=== PATIENT | male | born 1935 | race African-American/Black ===

== ENCOUNTER 2017-09-26 09:22 | Inpatient (IN) ==
[2017-09-26] MEDS: NOREPINEPHRINE 8 MG in SODIUM CHLORIDE 0.9% 242 ML IV SCH ×2 (13:14→21:18)
[2017-09-26] MEDS ORDERED: ONDANSETRON 4 MG/2 ML VIAL IV PRN (13:35)
[2017-09-26] MEDS ORDERED: SODIUM CHLORIDE 0.9% 1,000 ML IV ONE (13:35)
[2017-09-26] MEDS ORDERED: GLUCAGON 1 MG VIAL IM PRN ×2 (13:35→15:24)
[2017-09-26] MEDS ORDERED: PANTOPRAZOLE 40 MG TABLET PO SCH (14:00)
[2017-09-26] MEDS ORDERED: SODIUM CHLORIDE 0.9% 1,000 ML IV SCH (14:00)
[2017-09-26 14:02] LABS: ABG Base Excess -8.1 MMOL/L (-2.5-2.5); ABG HCO3 12.6 MMOL/L (20-26); ABG Oxygen Saturation 98.2 % (95-100); ABG PH 7.492 (7.35-7.45); ABG PO2 123.3 MM HG (80-95); ABG TCO2 13.2 MMOL/L (23-27)
[2017-09-26 14:04] LABS: ABG PCO2 16.9 MM HG (35-48)
[2017-09-26 14:39] LABS: Basophils # 0.1 10*3/uL (0.0-0.2); Basophils % 0.3 % (0.0-0.8); Eosinophils % 0.1 % (0.00-10.9); Hematocrit 40.6 VOL% (42.0-52.0); Hemoglobin 12.8 GM/DL (14.0-18.0); Immature Granulocytes % 8.2 %; Immature Granulocytes Absolute 3.49 #; Lymphocytes # 1.1 10*3/uL (1.4-4.0); Lymphocytes % 2.5 % (21.2-54.2); Mean Corpuscular HGB Conc 31.5 GM/DL (32-36); Mean Corpuscular Hemoglobin 26 PG (27-34); Mean Corpuscular Volume 83.2 FL (87-102); Monocytes # 6.3 10*3/uL (0.11-0.8); Monocytes % 14.8 % (1.7-12.7); NRBC # 0.02 10*3/uL; Neutrophils # 31.7 10*3/uL (1.4-7.4); Neutrophils % 74.1 % (38.7-73.9); Platelet Count 197 T/CUMM (130-400); Red Blood Count 4.88 MC/CUMM (3.8-5.5); Red Cell Distribution Width 26.8 % (9.3-17.3)
[2017-09-26 14:40] LABS: Mean Platelet Volume 10.3 FL (9.6-12.0)
[2017-09-26 14:41] LABS: White Blood Count 42.7 T/CUMM (4-12)
[2017-09-26 14:53] LABS: Lactic Acid 8.5 MMOL/L (0.4-2.0)
[2017-09-26 14:53] LABS: Bilirubin,Total 0.7 MG/DL (0.2-1.0); Calcium 8.5 MG/DL (8.5-10.1); Osmolality,Calculated 321.2 MOS/KG (273-304); Potassium 3.9 MMOL/L (3.5-5.1); Total Protein 5.9 G/DL (6.4-8.3)
[2017-09-26 15:01] LABS: Magnesium 2.3 MG/DL (1.8-2.4); Thyroid Stimulating Hormone 1.34 uIU/ml (0.358-3.74)
[2017-09-26 15:03] LABS: Apearance,Urine CLOUDY (Clear); Bacteria,Urine Occasional /HPF (Few); Bilirubin,Urine Negative (Negative); Blood, Urine Large mg/dL (Negative); Glucose,Urine (UA) Negative (Negative); Hyaline Casts,Urine 7 /LPF (0-3); Ketones,Urine Negative (Negative); Nitrite,Urine Negative (Negative); Protein,Urine 100 MG/DL; RBC,Urine 148 /HPF (0-4); Urine Color Amber (Yellow); Urine Specific Gravity 1.017 (1.001-1.035); Urine Urobilinogen < 2.0 EU/DL (0.2-1.0); WBC,Urine 109 /HPF (0-6)
[2017-09-26] MEDS ORDERED: TUBERCULIN SKIN TEST 0.1 ML SYRINGE INTRADERM ONE (15:05)
[2017-09-26] MEDS ORDERED: DEXTROSE 50% 25 GM/50 ML VIAL IV PRN (15:24)
[2017-09-26] MEDS ORDERED: SODIUM BICARB INJ 100 MEQ in DEXTROSE 5% 1,000 ML IV SCH (15:30)
[2017-09-26] MEDS ORDERED: SODIUM BICARB INJ 50 MEQ in SODIUM CHLORIDE 0.45% 1,000 ML IV SCH (15:30)
[2017-09-26] MEDS: MEROPENEM 1,000 MG in SYRINGE 1 EACH IV SCH ×2 (15:39→23:42)
[2017-09-26 15:45] LABS: % Iron Saturation 6.1 % (18-50); Ferritin 191.4 ng/ml (26-388)
[2017-09-26] MEDS ORDERED: PANTOPRAZOLE 40 MG VIAL IV SCH (16:00)
[2017-09-26] MEDS: PANTOPRAZOLE 40 MG VIAL IV SCH (16:30)
[2017-09-26] MEDS: PYRIDOXINE 50 MG TABLET PO SCH (16:39)
[2017-09-26] MEDS: INSULIN LISPRO 100 UNIT/ML SUBCUT SCH ×2 (16:51→21:28)
[2017-09-26 17:53] LABS: Band Neutrophils 12 % (0-10); Lymphocytes 4 % (20-55); Platelet Estimate Normal; Poikilocytosis 1+; Segmented Neutrophils 75 % (50-85); Total Cells Counted 100
[2017-09-26 17:54] LABS: Burr Cells Few
[2017-09-26] MEDS ORDERED: PROPOFOL 1,000 MG/100 ML BOTTLE IV ONE (18:01)
[2017-09-26] MEDS ORDERED: SUCCINYLCHOLINE 200 MG/10 ML VIAL ONE (18:01)
[2017-09-26] MEDS: PROPOFOL 1,000 MG/100 ML BOTTLE IV SCH (18:30)
[2017-09-26] MEDS: SODIUM CHLORIDE 0.45% 1,000 ML IV SCH ×2 (18:51→23:42)
[2017-09-26 18:54] LABS: Lactic Acid 5.9 MMOL/L (0.4-2.0)
[2017-09-26 19:12] LABS: ABG Base Excess -7.1 MMOL/L (-2.5-2.5); ABG HCO3 18.6 MMOL/L (20-26); ABG Oxygen Saturation 95.5 % (95-100); ABG PH 7.476 (7.35-7.45); ABG PO2 76.2 MM HG (80-95); ABG TCO2 13.1 MMOL/L (23-27)
[2017-09-26 19:14] LABS: ABG PCO2 19.9 MM HG (35-48)
[2017-09-26] MEDS: ISONIAZID 300 MG TABLET PO SCH (19:56)
[2017-09-26] MEDS: ACETAMINOPHEN 325 MG TABLET PO PRN (19:56)
[2017-09-27] MEDS: NOREPINEPHRINE 8 MG in SODIUM CHLORIDE 0.9% 242 ML IV SCH ×6 (00:58→22:37)
[2017-09-27] MEDS: DEXTROSE 50% 25 GM/50 ML VIAL IV PRN ×2 (03:54→13:29)
[2017-09-27 03:55] LABS: ABG Base Excess -9.9 MMOL/L (-2.5-2.5); ABG HCO3 12.5 MMOL/L (20-26); ABG Oxygen Saturation 99.1 % (95-100); ABG PH 7.417 (7.35-7.45); ABG PO2 186.1 MM HG (80-95); ABG TCO2 13.1 MMOL/L (23-27); Allen Test Positive; Pt O2 Delivery Device Ventilator
[2017-09-27 03:57] LABS: ABG PCO2 19.8 MM HG (35-48)
[2017-09-27] MEDS: SODIUM CHLORIDE 0.45% 1,000 ML IV SCH (05:20)
[2017-09-27 05:23] LABS: Albumin 1.6 G/DL (3.4-5.0); Bilirubin,Total 0.9 MG/DL (0.2-1.0); Calcium 7.3 MG/DL (8.5-10.1); Osmolality,Calculated 316.1 MOS/KG (273-304); Potassium 3.8 MMOL/L (3.5-5.1); Total Protein 5.1 G/DL (6.4-8.3)
[2017-09-27 06:12] LABS: Basophils # 0.1 10*3/uL (0.0-0.2); Basophils % 0.4 % (0.0-0.8); Hemoglobin 11.4 GM/DL (14.0-18.0); Immature Granulocytes % 5.1 %; Immature Granulocytes Absolute 1.88 #; Lymphocytes # 0.9 10*3/uL (1.4-4.0); Lymphocytes % 2.3 % (21.2-54.2); Mean Corpuscular HGB Conc 30.8 GM/DL (32-36); Mean Corpuscular Hemoglobin 25 PG (27-34); Mean Corpuscular Volume 82.2 FL (87-102); Monocytes # 3.3 10*3/uL (0.11-0.8); NRBC # 0.12 10*3/uL; Neutrophils # 30.5 10*3/uL (1.4-7.4); Neutrophils % 83.2 % (38.7-73.9); Platelet Count 180 T/CUMM (130-400); Red Cell Distribution Width 26.5 % (9.3-17.3); White Blood Count 36.7 T/CUMM (4-12)
[2017-09-27] MEDS: MEROPENEM 1,000 MG in SYRINGE 1 EACH IV SCH ×3 (06:20→23:46)
[2017-09-27] MEDS: HYDROCORTISONE 100 MG VIAL IV SCH ×3 (07:26→23:50)
[2017-09-27 07:59] LABS: Band Neutrophils 25 % (0-10); Dohle Bodies Few; Lymphocytes 3 % (20-55); Polychromasia Slight; Segmented Neutrophils 62 % (50-85); Target Cells Slight; Total Cells Counted 100
[2017-09-27 08:00] LABS: Hypochromasia 1+; Platelet Estimate Adequate
[2017-09-27] MEDS ORDERED: SODIUM BICARB INJ 150 MEQ in SODIUM CHLORIDE 0.45% 1,000 ML IV SCH (10:00)
[2017-09-27] MEDS: INSULIN LISPRO 100 UNIT/ML SUBCUT SCH ×4 (12:10→21:44)
[2017-09-27] MEDS: ISONIAZID 300 MG TABLET PO SCH (12:32)
[2017-09-27] MEDS: PANTOPRAZOLE 40 MG VIAL IV SCH (12:32)
[2017-09-27] MEDS: PYRIDOXINE 50 MG TABLET PO SCH (12:32)
[2017-09-27] MEDS: ACETAMINOPHEN 325 MG TABLET PO PRN ×2 (12:50→21:44)
[2017-09-27] MEDS: PROPOFOL 1,000 MG/100 ML BOTTLE IV SCH (15:46)
[2017-09-28 02:58] LABS: ABG Base Excess -7.9 MMOL/L (-2.5-2.5); ABG HCO3 18.1 MMOL/L (20-26); ABG Oxygen Saturation 98.4 % (95-100); ABG PCO2 24.5 MM HG (35-48); ABG PH 7.403 (7.35-7.45); ABG TCO2 13.6 MMOL/L (23-27); Allen Test Positive; Pt O2 Delivery Device Ventilator
[2017-09-28] MEDS: NOREPINEPHRINE 8 MG in SODIUM CHLORIDE 0.9% 242 ML IV SCH ×3 (04:06→13:33)
[2017-09-28 05:45] LABS: Basophils # 0.2 10*3/uL (0.0-0.2); Basophils % 0.6 % (0.0-0.8); Eosinophils % 0.1 % (0.00-10.9); Hematocrit 39.6 VOL% (42.0-52.0); Hemoglobin 12.7 GM/DL (14.0-18.0); Immature Granulocytes Absolute 1.83 #; Lymphocytes # 1.1 10*3/uL (1.4-4.0); Lymphocytes % 4.1 % (21.2-54.2); Mean Corpuscular HGB Conc 32.1 GM/DL (32-36); Mean Corpuscular Hemoglobin 26 PG (27-34); Mean Corpuscular Volume 80.3 FL (87-102); Monocytes # 2.6 10*3/uL (0.11-0.8); Monocytes % 9.7 % (1.7-12.7); NRBC # 0.37 10*3/uL; Neutrophils # 20.6 10*3/uL (1.4-7.4); Neutrophils % 78.5 % (38.7-73.9); Platelet Count 120 T/CUMM (130-400); Red Blood Count 4.93 MC/CUMM (3.8-5.5); Red Cell Distribution Width 26.7 % (9.3-17.3); White Blood Count 26.3 T/CUMM (4-12)
[2017-09-28 06:09] LABS: Albumin 1.7 G/DL (3.4-5.0); Bilirubin,Total 0.8 MG/DL (0.2-1.0); Calcium 7.2 MG/DL (8.5-10.1); Total Protein 5.6 G/DL (6.4-8.3)
[2017-09-28 06:10] LABS: Osmolality,Calculated 315.4 MOS/KG (273-304); Potassium 4.8 MMOL/L (3.5-5.1)
[2017-09-28] MEDS: MEROPENEM 1,000 MG in SYRINGE 1 EACH IV SCH (06:18)
[2017-09-28] MEDS: HYDROCORTISONE 100 MG VIAL IV SCH ×3 (06:23→23:03)
[2017-09-28 06:28] LABS: Band Neutrophils 1 % (0-10); Lymphocytes 5 % (20-55); Nucleated Red Blood Cells 2 (0-5); Segmented Neutrophils 83 % (50-85); Total Cells Counted 100
[2017-09-28 06:29] LABS: Burr Cells Slight; Giant Platelets Few; Platelet Estimate Normal
[2017-09-28] MEDS ORDERED: SODIUM BICARB INJ 100 MEQ in DEXTROSE 5% 1,000 ML IV SCH (07:00)
[2017-09-28] MEDS: INSULIN LISPRO 100 UNIT/ML SUBCUT SCH ×3 (08:58→15:40)
[2017-09-28] MEDS ORDERED: SODIUM CHLORIDE 0.45% 1,000 ML IV ONE (09:01)
[2017-09-28] MEDS: SODIUM CHLORIDE 0.45% 1,000 ML IV SCH (09:11)
[2017-09-28 09:52] LABS: Lactic Acid 3.8 MMOL/L (0.4-2.0)
[2017-09-28] MEDS: PANTOPRAZOLE 40 MG VIAL IV SCH (10:04)
[2017-09-28] MEDS: PYRIDOXINE 50 MG TABLET PO SCH (10:05)
[2017-09-28] MEDS: ISONIAZID 300 MG TABLET PO SCH (10:05)
[2017-09-28] MEDS ORDERED: AMIODARONE INJ 450 MG in DEXTROSE 5% 241 ML IV SCH (12:00)
[2017-09-28] MEDS: VANCOMYCIN 50 MG/ML 60 ML/BOTTLE NG SCH ×2 (18:23→23:55)
[2017-09-28] MEDS: PROPOFOL 1,000 MG/100 ML BOTTLE IV SCH (18:34)
[2017-09-28] MEDS: SODIUM BICARB INJ 100 MEQ in STERILE WATER INJ 1,000 ML IV SCH (21:28)
[2017-09-29] MEDS: INSULIN LISPRO 100 UNIT/ML SUBCUT SCH ×4 (00:05→18:50)
[2017-09-29] MEDS: NOREPINEPHRINE 8 MG in SODIUM CHLORIDE 0.9% 242 ML IV SCH ×2 (00:18→16:00)
[2017-09-29] MEDS: PROPOFOL 1,000 MG/100 ML BOTTLE IV SCH ×2 (03:28→16:00)
[2017-09-29 04:17] LABS: ABG Base Excess -1.9 MMOL/L (-2.5-2.5); ABG HCO3 22.9 MMOL/L (20-26); ABG Oxygen Saturation 99.5 % (95-100); ABG PCO2 29.6 MM HG (35-48); ABG TCO2 18.9 MMOL/L (23-27)
[2017-09-29] MEDS ORDERED: MEROPENEM 500 MG in SYRINGE 1 EACH IV SCH (06:00)
[2017-09-29] MEDS: HYDROCORTISONE 100 MG VIAL IV SCH ×3 (06:20→23:08)
[2017-09-29] MEDS: VANCOMYCIN 50 MG/ML 60 ML/BOTTLE NG SCH ×3 (06:21→18:00)
[2017-09-29] MEDS: SODIUM BICARB INJ 100 MEQ in STERILE WATER INJ 1,000 ML IV SCH ×2 (09:00→21:09)
[2017-09-29 09:08] LABS: Basophils # 0.1 10*3/uL (0.0-0.2); Basophils % 0.4 % (0.0-0.8); Hematocrit 33.4 VOL% (42.0-52.0); Hemoglobin 11.1 GM/DL (14.0-18.0); Immature Granulocytes % 2.9 %; Lymphocytes # 0.6 10*3/uL (1.4-4.0); Lymphocytes % 3.1 % (21.2-54.2); Mean Corpuscular HGB Conc 33.2 GM/DL (32-36); Mean Corpuscular Hemoglobin 26 PG (27-34); Mean Corpuscular Volume 76.8 FL (87-102); Monocytes # 2.2 10*3/uL (0.11-0.8); Monocytes % 10.8 % (1.7-12.7); NRBC # 0.15 10*3/uL; Neutrophils # 16.9 10*3/uL (1.4-7.4); Neutrophils % 82.8 % (38.7-73.9); Platelet Count 102 T/CUMM (130-400); Red Blood Count 4.35 MC/CUMM (3.8-5.5); Red Cell Distribution Width 25.3 % (9.3-17.3); White Blood Count 20.4 T/CUMM (4-12)
[2017-09-29] MEDS: ISONIAZID 300 MG TABLET PO SCH (09:20)
[2017-09-29] MEDS: PYRIDOXINE 50 MG TABLET PO SCH (09:20)
[2017-09-29] MEDS: PANTOPRAZOLE 40 MG VIAL IV SCH (09:20)
[2017-09-29 09:28] LABS: Band Neutrophils 2 % (0-10); Lymphocytes 4 % (20-55); Metamyelocytes 1 %; Nucleated Red Blood Cells 1 (0-5); Promyelocytes 2 %; Segmented Neutrophils 81 % (50-85); Total Cells Counted 100
[2017-09-29 09:29] LABS: Hypochromasia 1+; Microcytosis 1+; Platelet Estimate Decreased; Tear Drop Cells Slight
[2017-09-29 09:35] LABS: Albumin 1.7 G/DL (3.4-5.0); Bilirubin,Total 0.6 MG/DL (0.2-1.0); Calcium 6.8 MG/DL (8.5-10.1); Osmolality,Calculated 315.8 MOS/KG (273-304); Potassium 3.5 MMOL/L (3.5-5.1); Total Protein 5.1 G/DL (6.4-8.3)
[2017-09-29 09:36] LABS: Magnesium 2.1 MG/DL (1.8-2.4); Phosphorous 5.7 MG/DL (2.5-4.9); Prealbumin 8.7 MG/DL (20-40)
[2017-09-29] MEDS: ceFAZolin 1,000 MG in SYRINGE 1 EACH IV SCH ×2 (12:00→23:05)
[2017-09-29] MEDS ORDERED: SODIUM CHLORIDE 0.9% 1,000 ML IV ONE (13:43)
[2017-09-30] MEDS: INSULIN LISPRO 100 UNIT/ML SUBCUT SCH ×4 (01:07→18:21)
[2017-09-30] MEDS: VANCOMYCIN 50 MG/ML 60 ML/BOTTLE NG SCH ×4 (01:15→18:21)
[2017-09-30 04:14] LABS: ABG Base Excess 2.8 MMOL/L (-2.5-2.5); ABG HCO3 26.9 MMOL/L (20-26); ABG Oxygen Saturation 99.5 % (95-100); ABG PH 7.529 (7.35-7.45); ABG TCO2 19.7 MMOL/L (23-27)
[2017-09-30 04:33] LABS: Basophils # 0.1 10*3/uL (0.0-0.2); Basophils % 0.3 % (0.0-0.8); Hematocrit 33.2 VOL% (42.0-52.0); Hemoglobin 10.7 GM/DL (14.0-18.0); Immature Granulocytes % 2.8 %; Immature Granulocytes Absolute 0.44 #; Lymphocytes % 6.4 % (21.2-54.2); Mean Corpuscular HGB Conc 32.2 GM/DL (32-36); Mean Corpuscular Hemoglobin 25 PG (27-34); Mean Corpuscular Volume 77.8 FL (87-102); Monocytes # 1.5 10*3/uL (0.11-0.8); Monocytes % 9.4 % (1.7-12.7); Neutrophils # 12.7 10*3/uL (1.4-7.4); Neutrophils % 81.1 % (38.7-73.9); Platelet Count 97 T/CUMM (130-400); Red Blood Count 4.27 MC/CUMM (3.8-5.5); Red Cell Distribution Width 25.1 % (9.3-17.3); White Blood Count 15.7 T/CUMM (4-12)
[2017-09-30 05:04] LABS: Alanine Aminotransferase 34 U/L (16-61); Albumin 1.6 G/DL (3.4-5.0); Alkaline Phosphatase 110 U/L (45-117); Aspartate Amino Transferase 114 U/L (0-37); Bilirubin,Total < 0.39 MG/DL (0.2-1.0); Blood Urea Nitrogen 71 MG/DL (7-18); Glucose 196 MG/DL (74-106); Osmolality,Calculated 315.6 MOS/KG (273-304); Sodium 146 MMOL/L (136-145); Total Protein 4.9 G/DL (6.4-8.3)
[2017-09-30 05:11] LABS: Band Neutrophils 2 % (0-10); Giant Platelets Few; Hypochromasia 1+; Lymphocytes 8 % (20-55); Nucleated Red Blood Cells 1 (0-5); Ovalocytes Slight; Platelet Estimate Decreased; Segmented Neutrophils 78 % (50-85); Total Cells Counted 100
[2017-09-30 05:12] LABS: Burr Cells Slight; Microcytosis Slight
[2017-09-30] MEDS: SODIUM BICARB INJ 100 MEQ in STERILE WATER INJ 1,000 ML IV SCH ×2 (05:43→10:06)
[2017-09-30] MEDS: HYDROCORTISONE 100 MG VIAL IV SCH ×3 (06:09→22:41)
[2017-09-30] MEDS: NOREPINEPHRINE 8 MG in SODIUM CHLORIDE 0.9% 242 ML IV SCH ×2 (06:25→15:11)
[2017-09-30] MEDS: PROPOFOL 1,000 MG/100 ML BOTTLE IV SCH ×2 (08:00→18:33)
[2017-09-30] MEDS ORDERED: SODIUM BICARB INJ 50 MEQ in DEXTROSE 5% 1,000 ML IV SCH (08:09)
[2017-09-30] MEDS: PANTOPRAZOLE 40 MG VIAL IV SCH (09:33)
[2017-09-30] MEDS: PYRIDOXINE 50 MG TABLET PO SCH (09:33)
[2017-09-30] MEDS: ISONIAZID 300 MG TABLET PO SCH (09:33)
[2017-09-30] MEDS ORDERED: TUBERCULIN SKIN TEST 0.1 ML SYRINGE INTRADERM ONE (09:52)
[2017-09-30] MEDS: ceFAZolin 1,000 MG in SYRINGE 1 EACH IV SCH ×2 (11:39→22:41)
[2017-09-30] MEDS: [UNRECOGNIZED DRUG - OTHER] IV SCH (15:56)
[2017-09-30] MEDS: POTASSIUM CHLORIDE IV SCH (15:56)
[2017-09-30] MEDS: SODIUM BICARB IV SCH (15:56)
[2017-09-30] MEDS ORDERED: AMIODARONE 450 MG/9 ML VIAL IV ONE (18:29)
[2017-10-01] MEDS: INSULIN LISPRO 100 UNIT/ML SUBCUT SCH ×5 (00:35→23:46)
[2017-10-01] MEDS: VANCOMYCIN 50 MG/ML 60 ML/BOTTLE NG SCH ×5 (00:35→23:46)
[2017-10-01] MEDS: PROPOFOL 1,000 MG/100 ML BOTTLE IV SCH ×2 (03:30→23:38)
[2017-10-01] MEDS: NOREPINEPHRINE 8 MG in SODIUM CHLORIDE 0.9% 242 ML IV SCH ×2 (04:00→16:01)
[2017-10-01 06:01] LABS: Basophils % 0.2 % (0.0-0.8); Immature Granulocytes % 3.3 %; Immature Granulocytes Absolute 0.58 #; Lymphocytes # 0.7 10*3/uL (1.4-4.0); Lymphocytes % 4.2 % (21.2-54.2); Mean Corpuscular HGB Conc 33.3 GM/DL (32-36); Mean Corpuscular Hemoglobin 26 PG (27-34); Mean Corpuscular Volume 78.6 FL (87-102); Monocytes # 1.9 10*3/uL (0.11-0.8); Monocytes % 10.6 % (1.7-12.7); NRBC # 0.08 10*3/uL; Neutrophils # 14.5 10*3/uL (1.4-7.4); Neutrophils % 81.7 % (38.7-73.9); Platelet Count 96 T/CUMM (130-400); Red Cell Distribution Width 25.1 % (9.3-17.3); White Blood Count 17.7 T/CUMM (4-12)
[2017-10-01 06:05] LABS: Calcium 7.7 MG/DL (8.5-10.1); Osmolality,Calculated 311.3 MOS/KG (273-304); Potassium 2.9 MMOL/L (3.5-5.1)
[2017-10-01] MEDS: HYDROCORTISONE 100 MG VIAL IV SCH ×3 (06:18→22:15)
[2017-10-01 06:30] LABS: Band Neutrophils 3 % (0-10); Lymphocytes 6 % (20-55); Segmented Neutrophils 85 % (50-85); Total Cells Counted 100
[2017-10-01 06:31] LABS: Hypochromasia 1+; Microcytosis 1+
[2017-10-01 06:32] LABS: Platelet Estimate Decreased; Spherocytes Slight
[2017-10-01] MEDS ORDERED: POTASSIUM CHLORIDE RIDER 20 MEQ in PREMIX 1 EACH IV ONE (08:18)
[2017-10-01] MEDS: PANTOPRAZOLE 40 MG VIAL IV SCH (09:11)
[2017-10-01] MEDS: ISONIAZID 300 MG TABLET PO SCH (09:21)
[2017-10-01] MEDS: PYRIDOXINE 50 MG TABLET PO SCH (09:21)
[2017-10-01] MEDS: SODIUM BICARB IV SCH (10:45)
[2017-10-01] MEDS: POTASSIUM CHLORIDE IV SCH (10:45)
[2017-10-01] MEDS: [UNRECOGNIZED DRUG - OTHER] IV SCH (10:45)
[2017-10-01] MEDS: ceFAZolin 1,000 MG in SYRINGE 1 EACH IV SCH ×2 (10:50→22:17)
[2017-10-01] MEDS ORDERED: POTASSIUM CHLORIDE 20 MEQ TABLET PO SCH (13:00)
[2017-10-01 15:48] LABS: Calcium 7.4 MG/DL (8.5-10.1); Osmolality,Calculated 309.1 MOS/KG (273-304); Potassium 2.7 MMOL/L (3.5-5.1)
[2017-10-01] MEDS: POTASSIUM CHLORIDE RIDER 20 MEQ in PREMIX 1 EACH IV SCH ×3 (16:08→19:00)
[2017-10-01] MEDS: POTASSIUM CHLORIDE INJ 40 MEQ in DEXTROSE 5% NACL 0.22% 1,000 ML IV SCH (16:09)
[2017-10-01] MEDS ORDERED: POTASSIUM CHLORIDE RIDER 10 MEQ in PREMIX 1 EACH IV PRN (21:43)
[2017-10-01] MEDS ORDERED: POTASSIUM CHLORIDE INJ 30 MEQ in SODIUM CHLORIDE 0.9% 250 ML IV ONE (22:30)
[2017-10-02 03:23] LABS: Pt O2 Delivery Device Ventilator
[2017-10-02 03:24] LABS: ABG Base Excess 5.7 MMOL/L (-2.5-2.5); ABG HCO3 27.8 MMOL/L (20-26); ABG Oxygen Saturation 98.8 % (95-100); ABG PCO2 31.6 MM HG (35-48); ABG PH 7.562 (7.35-7.45); ABG PO2 180.3 MM HG (80-95); ABG TCO2 28.8 MMOL/L (23-27)
[2017-10-02 03:36] LABS: Basophils % 0.1 % (0.0-0.8); Hematocrit 30.2 VOL% (42.0-52.0); Hemoglobin 9.5 GM/DL (14.0-18.0); Immature Granulocytes % 3.8 %; Immature Granulocytes Absolute 0.54 #; Lymphocytes # 0.6 10*3/uL (1.4-4.0); Lymphocytes % 3.9 % (21.2-54.2); Mean Corpuscular HGB Conc 31.5 GM/DL (32-36); Mean Corpuscular Hemoglobin 25 PG (27-34); Mean Corpuscular Volume 80.1 FL (87-102); Monocytes # 1.4 10*3/uL (0.11-0.8); Monocytes % 9.8 % (1.7-12.7); NRBC # 0.04 10*3/uL; Neutrophils # 11.6 10*3/uL (1.4-7.4); Neutrophils % 82.4 % (38.7-73.9); Platelet Count 134 T/CUMM (130-400); Red Blood Count 3.77 MC/CUMM (3.8-5.5); Red Cell Distribution Width 25.4 % (9.3-17.3); White Blood Count 14.1 T/CUMM (4-12)
[2017-10-02 03:43] LABS: Calcium 7.9 MG/DL (8.5-10.1); Osmolality,Calculated 311.9 MOS/KG (273-304); Potassium 3.7 MMOL/L (3.5-5.1)
[2017-10-02] MEDS: POTASSIUM CHLORIDE RIDER 20 MEQ in PREMIX 1 EACH IV PRN (03:54)
[2017-10-02 05:10] LABS: Band Neutrophils 1 % (0-10); Hypochromasia 2+; Lymphocytes 5 % (20-55); Metamyelocytes 2 %; Myelocytes 3 %; Platelet Estimate Decreased; Segmented Neutrophils 80 % (50-85); Total Cells Counted 100
[2017-10-02 05:11] LABS: Anisocytosis 1+; Macrocytosis 1+
[2017-10-02] MEDS: VANCOMYCIN 50 MG/ML 60 ML/BOTTLE NG SCH ×4 (05:54→23:23)
[2017-10-02] MEDS: HYDROCORTISONE 100 MG VIAL IV SCH ×3 (06:00→18:23)
[2017-10-02] MEDS: INSULIN LISPRO 100 UNIT/ML SUBCUT SCH ×4 (06:00→23:26)
[2017-10-02] MEDS ORDERED: DEXTROSE 5% 1,000 ML IV SCH (08:00)
[2017-10-02] MEDS: PANTOPRAZOLE 40 MG VIAL IV SCH (09:07)
[2017-10-02] MEDS: POTASSIUM CHLORIDE INJ 40 MEQ in DEXTROSE 5% NACL 0.22% 1,000 ML IV SCH (09:07)
[2017-10-02] MEDS: PYRIDOXINE 50 MG TABLET PO SCH (10:59)
[2017-10-02] MEDS: ISONIAZID 300 MG TABLET PO SCH (10:59)
[2017-10-02] MEDS: ceFAZolin 1,000 MG in SYRINGE 1 EACH IV SCH ×2 (11:09→23:23)
[2017-10-02] MEDS ORDERED: INFLUENZA VIRUS VACCINE 0.5 ML SYRINGE IM ONE (13:33)
[2017-10-02] MEDS: NOREPINEPHRINE 8 MG in SODIUM CHLORIDE 0.9% 242 ML IV SCH (14:50)
[2017-10-02] MEDS: LACTOBACILLUS RHAMNOSUS GG CAPSULE PER TUBE SCH (20:30)
[2017-10-02] MEDS ORDERED: MULTIVITAMIN INJ 10 ML in DEXTROSE 5% 1,000 ML IV ONE (21:00)
[2017-10-03] MEDS: HYDROCORTISONE 100 MG VIAL IV SCH ×3 (03:05→18:47)
[2017-10-03 03:52] LABS: Calcium 7.3 MG/DL (8.5-10.1); Potassium 2.9 MMOL/L (3.5-5.1)
[2017-10-03] MEDS: POTASSIUM CHLORIDE RIDER 20 MEQ in PREMIX 1 EACH IV PRN ×3 (04:05→06:10)
[2017-10-03] MEDS: INSULIN LISPRO 100 UNIT/ML SUBCUT SCH ×3 (05:26→18:36)
[2017-10-03] MEDS: VANCOMYCIN 50 MG/ML 60 ML/BOTTLE NG SCH ×4 (05:27→23:42)
[2017-10-03] MEDS: LACTOBACILLUS RHAMNOSUS GG CAPSULE PER TUBE SCH ×2 (08:47→23:42)
[2017-10-03] MEDS: PYRIDOXINE 50 MG TABLET PO SCH (08:47)
[2017-10-03] MEDS: ISONIAZID 300 MG TABLET PO SCH (08:47)
[2017-10-03] MEDS: PANTOPRAZOLE 40 MG VIAL IV SCH (08:47)
[2017-10-03] MEDS: ceFAZolin 1,000 MG in SYRINGE 1 EACH IV SCH ×2 (10:28→23:46)
[2017-10-04] MEDS: INSULIN LISPRO 100 UNIT/ML SUBCUT SCH ×4 (00:03→19:23)
[2017-10-04] MEDS: HYDROCORTISONE 100 MG VIAL IV SCH ×3 (03:45→20:37)
[2017-10-04] MEDS: VANCOMYCIN 50 MG/ML 60 ML/BOTTLE NG SCH ×4 (06:08→23:50)
[2017-10-04 06:49] LABS: Basophils % 0.1 % (0.0-0.8); Eosinophils % 0.1 % (0.00-10.9); Hematocrit 30.6 VOL% (42.0-52.0); Hemoglobin 9.8 GM/DL (14.0-18.0); Immature Granulocytes % 4.8 %; Immature Granulocytes Absolute 0.73 #; Lymphocytes # 0.8 10*3/uL (1.4-4.0); Lymphocytes % 5.4 % (21.2-54.2); Mean Corpuscular Hemoglobin 26 PG (27-34); Mean Corpuscular Volume 79.9 FL (87-102); Mean Platelet Volume 11.4 FL (9.6-12.0); Monocytes # 1.3 10*3/uL (0.11-0.8); Monocytes % 8.5 % (1.7-12.7); NRBC # 0.02 10*3/uL; Neutrophils # 12.5 10*3/uL (1.4-7.4); Neutrophils % 81.1 % (38.7-73.9); Platelet Count 192 T/CUMM (130-400); Red Blood Count 3.83 MC/CUMM (3.8-5.5); Red Cell Distribution Width 26.5 % (9.3-17.3); White Blood Count 15.4 T/CUMM (4-12)
[2017-10-04 07:12] LABS: Giant Platelets Few; Hypochromasia 1+; Lymphocytes 7 % (20-55); Microcytosis Slight; Ovalocytes Slight; Platelet Estimate Normal; Segmented Neutrophils 87 % (50-85); Total Cells Counted 100
[2017-10-04] MEDS: LACTOBACILLUS RHAMNOSUS GG CAPSULE PER TUBE SCH ×2 (10:12→20:37)
[2017-10-04] MEDS: ISONIAZID 300 MG TABLET PO SCH (10:12)
[2017-10-04] MEDS: PANTOPRAZOLE 40 MG VIAL IV SCH (10:12)
[2017-10-04] MEDS: PYRIDOXINE 50 MG TABLET PO SCH (10:13)
[2017-10-04] MEDS: ceFAZolin 1,000 MG in SYRINGE 1 EACH IV SCH ×2 (13:59→23:50)
[2017-10-05] MEDS: INSULIN LISPRO 100 UNIT/ML SUBCUT SCH ×5 (01:00→23:56)
[2017-10-05] MEDS: HYDROCORTISONE 100 MG VIAL IV SCH ×3 (04:45→17:09)
[2017-10-05] MEDS: VANCOMYCIN 50 MG/ML 60 ML/BOTTLE NG SCH ×3 (05:58→17:56)
[2017-10-05 06:37] LABS: Basophils % 0.1 % (0.0-0.8); Eosinophils % 0.1 % (0.00-10.9); Hematocrit 30.5 VOL% (42.0-52.0); Hemoglobin 9.6 GM/DL (14.0-18.0); Immature Granulocytes % 3.3 %; Lymphocytes # 1.2 10*3/uL (1.4-4.0); Lymphocytes % 7.8 % (21.2-54.2); Mean Corpuscular HGB Conc 31.5 GM/DL (32-36); Mean Corpuscular Hemoglobin 26 PG (27-34); Mean Corpuscular Volume 81.6 FL (87-102); Mean Platelet Volume 11.6 FL (9.6-12.0); Monocytes # 1.7 10*3/uL (0.11-0.8); Neutrophils # 11.9 10*3/uL (1.4-7.4); Neutrophils % 77.7 % (38.7-73.9); Platelet Count 211 T/CUMM (130-400); Red Blood Count 3.74 MC/CUMM (3.8-5.5); Red Cell Distribution Width 26.5 % (9.3-17.3); White Blood Count 15.3 T/CUMM (4-12)
[2017-10-05 07:04] LABS: Calcium 7.8 MG/DL (8.5-10.1); Osmolality,Calculated 296.3 MOS/KG (273-304); Potassium 3.2 MMOL/L (3.5-5.1)
[2017-10-05 07:06] LABS: Hypochromasia 1+
[2017-10-05 07:07] LABS: Microcytosis 1+; Ovalocytes Slight; Platelet Estimate Normal
[2017-10-05 07:09] LABS: Magnesium 1.9 MG/DL (1.8-2.4); Phosphorous 3.6 MG/DL (2.5-4.9); Prealbumin 24.7 MG/DL (20-40)
[2017-10-05] MEDS: PANTOPRAZOLE 40 MG VIAL IV SCH (08:37)
[2017-10-05] MEDS: ceFAZolin 1,000 MG in SYRINGE 1 EACH IV SCH ×2 (08:38→21:38)
[2017-10-05] MEDS: ISONIAZID 300 MG TABLET PO SCH (08:39)
[2017-10-05] MEDS: LACTOBACILLUS RHAMNOSUS GG CAPSULE PER TUBE SCH ×2 (08:40→22:08)
[2017-10-05] MEDS: PYRIDOXINE 50 MG TABLET PO SCH (08:40)
[2017-10-05] MEDS: POTASSIUM CHLORIDE RIDER 20 MEQ in PREMIX 1 EACH IV PRN ×2 (11:45→13:45)
[2017-10-06] MEDS: VANCOMYCIN 50 MG/ML 60 ML/BOTTLE NG SCH ×4 (00:59→17:32)
[2017-10-06] MEDS: HYDROCORTISONE 100 MG VIAL IV SCH ×3 (01:06→17:26)
[2017-10-06 05:17] LABS: Basophils % 0.1 % (0.0-0.8); Hematocrit 28.5 VOL% (42.0-52.0); Hemoglobin 8.9 GM/DL (14.0-18.0); Immature Granulocytes % 3.8 %; Immature Granulocytes Absolute 0.54 #; Lymphocytes # 0.7 10*3/uL (1.4-4.0); Lymphocytes % 5.1 % (21.2-54.2); Mean Corpuscular HGB Conc 31.2 GM/DL (32-36); Mean Corpuscular Hemoglobin 25 PG (27-34); Mean Corpuscular Volume 81.4 FL (87-102); Mean Platelet Volume 11.4 FL (9.6-12.0); Monocytes # 1.4 10*3/uL (0.11-0.8); Monocytes % 9.8 % (1.7-12.7); NRBC # 0.02 10*3/uL; Neutrophils # 11.6 10*3/uL (1.4-7.4); Neutrophils % 81.2 % (38.7-73.9); Platelet Count 207 T/CUMM (130-400); Red Cell Distribution Width 26.6 % (9.3-17.3); White Blood Count 14.2 T/CUMM (4-12)
[2017-10-06 05:42] LABS: Giant Platelets Few; Hypochromasia 1+; Lymphocytes 5 % (20-55); Microcytosis Slight; Platelet Estimate Adequate; Segmented Neutrophils 89 % (50-85); Total Cells Counted 100
[2017-10-06 05:52] LABS: Calcium 7.1 MG/DL (8.5-10.1); Magnesium 2.1 MG/DL (1.8-2.4); Osmolality,Calculated 298.1 MOS/KG (273-304); Potassium 2.8 MMOL/L (3.5-5.1)
[2017-10-06] MEDS: INSULIN LISPRO 100 UNIT/ML SUBCUT SCH ×3 (05:56→18:23)
[2017-10-06] MEDS ORDERED: POTASSIUM CHLORIDE 20 MEQ/15 ML UDCUP PEG SCH (10:00)
[2017-10-06] MEDS: LACTOBACILLUS RHAMNOSUS GG CAPSULE PER TUBE SCH (10:05)
[2017-10-06] MEDS: PANTOPRAZOLE 40 MG VIAL IV SCH (10:05)
[2017-10-06] MEDS: ISONIAZID 300 MG TABLET PO SCH (10:05)
[2017-10-06] MEDS: PYRIDOXINE 50 MG TABLET PO SCH (10:05)
[2017-10-06] MEDS: ceFAZolin 1,000 MG in SYRINGE 1 EACH IV SCH ×2 (10:06→21:07)
[2017-10-06] MEDS: POTASSIUM CHLORIDE 20 MEQ/15 ML UDCUP PO SCH (10:08)
[2017-10-06] MEDS: LACTOBACILLUS RHAMNOSUS GG CAPSULE PO SCH ×2 (10:08→21:12)
[2017-10-06] MEDS: POTASSIUM CHLORIDE RIDER 20 MEQ in PREMIX 1 EACH IV PRN ×3 (10:19→14:17)
[2017-10-06] MEDS: DEXTROSE 5% NACL 0.45% 1,000 ML IV SCH (17:27)
[2017-10-06] MEDS: COLLAGENASE OINT 30 GM TUBE TOP SCH (17:27)
[2017-10-07] MEDS: VANCOMYCIN 50 MG/ML 60 ML/BOTTLE NG SCH ×4 (01:26→18:29)
[2017-10-07] MEDS: INSULIN LISPRO 100 UNIT/ML SUBCUT SCH ×4 (01:26→18:03)
[2017-10-07] MEDS: HYDROCORTISONE 100 MG VIAL IV SCH ×3 (02:01→18:23)
[2017-10-07] MEDS: DEXTROSE 5% NACL 0.45% 1,000 ML IV SCH (03:27)
[2017-10-07 05:31] LABS: Basophils % 0.1 % (0.0-0.8); Eosinophils % 0.1 % (0.00-10.9); Hematocrit 26.4 VOL% (42.0-52.0); Hemoglobin 8.4 GM/DL (14.0-18.0); Immature Granulocytes % 2.5 %; Immature Granulocytes Absolute 0.33 #; Lymphocytes # 0.8 10*3/uL (1.4-4.0); Mean Corpuscular HGB Conc 31.8 GM/DL (32-36); Mean Corpuscular Hemoglobin 26 PG (27-34); Mean Corpuscular Volume 81.7 FL (87-102); Mean Platelet Volume 10.6 FL (9.6-12.0); Monocytes # 1.9 10*3/uL (0.11-0.8); Monocytes % 14.3 % (1.7-12.7); Neutrophils # 10.4 10*3/uL (1.4-7.4); Platelet Count 190 T/CUMM (130-400); Red Blood Count 3.23 MC/CUMM (3.8-5.5); Red Cell Distribution Width 26.8 % (9.3-17.3); White Blood Count 13.4 T/CUMM (4-12)
[2017-10-07 05:53] LABS: Calcium 7.1 MG/DL (8.5-10.1); Magnesium 1.7 MG/DL (1.8-2.4); Osmolality,Calculated 295.3 MOS/KG (273-304); Potassium 2.6 MMOL/L (3.5-5.1)
[2017-10-07 05:54] LABS: Band Neutrophils 1 % (0-10); Giant Platelets Few; Hypochromasia 1+; Lymphocytes 4 % (20-55); Ovalocytes Slight; Platelet Estimate Adequate; Segmented Neutrophils 88 % (50-85); Total Cells Counted 100
[2017-10-07 05:55] LABS: Microcytosis Slight
[2017-10-07] MEDS: ceFAZolin 1,000 MG in SYRINGE 1 EACH IV SCH (08:49)
[2017-10-07] MEDS: PYRIDOXINE 50 MG TABLET PO SCH (08:50)
[2017-10-07] MEDS: ISONIAZID 300 MG TABLET PO SCH (08:50)
[2017-10-07] MEDS: POTASSIUM CHLORIDE 20 MEQ/15 ML UDCUP PO SCH ×3 (08:50→23:17)
[2017-10-07] MEDS: PANTOPRAZOLE 40 MG VIAL IV SCH (08:50)
[2017-10-07] MEDS: LACTOBACILLUS RHAMNOSUS GG CAPSULE PO SCH ×2 (08:50→23:17)
[2017-10-07] MEDS: COLLAGENASE OINT 30 GM TUBE TOP SCH (08:55)
[2017-10-07] MEDS ORDERED: MAGNESIUM SULF RIDER 4 GM in PREMIX 1 EACH IV ONE (09:00)
[2017-10-07] MEDS: DEXTROSE 5% NACL 0.22% 1,000 ML IV SCH (11:22)
[2017-10-07] MEDS: POTASSIUM CHLORIDE RIDER 20 MEQ in PREMIX 1 EACH IV PRN ×2 (12:25→14:56)
[2017-10-08] MEDS: DEXTROSE 5% NACL 0.22% 1,000 ML IV SCH (00:19)
[2017-10-08] MEDS: INSULIN LISPRO 100 UNIT/ML SUBCUT SCH ×3 (01:01→12:56)
[2017-10-08] MEDS: VANCOMYCIN 50 MG/ML 60 ML/BOTTLE NG SCH ×3 (01:25→12:56)
[2017-10-08] MEDS: HYDROCORTISONE 100 MG VIAL IV SCH ×2 (01:25→09:58)
[2017-10-08] MEDS: ISONIAZID 300 MG TABLET PO SCH (09:50)
[2017-10-08] MEDS: LACTOBACILLUS RHAMNOSUS GG CAPSULE PO SCH (09:50)
[2017-10-08] MEDS: PYRIDOXINE 50 MG TABLET PO SCH (09:50)
[2017-10-08] MEDS: POTASSIUM CHLORIDE 20 MEQ/15 ML UDCUP PO SCH (09:51)
[2017-10-08] MEDS: PANTOPRAZOLE 40 MG VIAL IV SCH (09:54)
[2017-10-08] MEDS: COLLAGENASE OINT 30 GM TUBE TOP SCH (10:01)
[2017-10-08 12:09] VITALS: BP 110/54
== END 2017-10-08 13:07 | DRG 870 ==
LOC: SUATTDRO 13:27 → N.ICU 13:27 → SUPCPDRO 13:27 → N.2E 10-03 11:30
PROVIDERS: ADMIT Internal Medicine; ATTEND Internal Medicine

== ENCOUNTER 2017-10-30 10:56 | Inpatient (IN) ==
[2017-10-30] MEDS ORDERED: ALBUTEROL/IPRATROPIUM 3 ML NEB RESP TX STA (11:18)
[2017-10-30] MEDS ORDERED: LEVOFLOXACIN INJ 750 MG in PREMIX 1 EACH IV STA (11:18)
[2017-10-30] MEDS ORDERED: SODIUM CHLORIDE 0.9% 1,000 ML IV STA ×2 (11:18→12:57)
[2017-10-30 12:24] LABS: Basophils % 0.1 % (0.0-0.8); Hematocrit 34.6 VOL% (42.0-52.0); Hemoglobin 10.6 GM/DL (14.0-18.0); Immature Granulocytes % 7.6 %; Immature Granulocytes Absolute 1.99 #; Lymphocytes # 0.7 10*3/uL (1.4-4.0); Lymphocytes % 2.7 % (21.2-54.2); Mean Corpuscular HGB Conc 30.6 GM/DL (32-36); Mean Corpuscular Hemoglobin 27 PG (27-34); Mean Corpuscular Volume 89.2 FL (87-102); Mean Platelet Volume 9.5 FL (9.6-12.0); Monocytes # 4.7 10*3/uL (0.11-0.8); Monocytes % 17.9 % (1.7-12.7); NRBC # 0.02 10*3/uL; Neutrophils # 18.9 10*3/uL (1.4-7.4); Neutrophils % 71.7 % (38.7-73.9); Platelet Count 223 T/CUMM (130-400); Red Blood Count 3.88 MC/CUMM (3.8-5.5); Red Cell Distribution Width 27.1 % (9.3-17.3); White Blood Count 26.3 T/CUMM (4-12)
[2017-10-30 12:53] LABS: Alanine Aminotransferase 24 U/L (16-61); Albumin 2.6 G/DL (3.4-5.0); Alkaline Phosphatase 117 U/L (45-117); Aspartate Amino Transferase 14 U/L (0-37); Blood Urea Nitrogen 17 MG/DL (7-18); Calcium 8.6 MG/DL (8.5-10.1); Glucose 92 MG/DL (74-106); Osmolality,Calculated 280.4 MOS/KG (273-304); Potassium 3.4 MMOL/L (3.5-5.1); Sodium 140 MMOL/L (136-145); Total Protein 5.8 G/DL (6.4-8.3)
[2017-10-30 12:54] LABS: Lactic Acid 7.1 MMOL/L (0.4-2.0)
[2017-10-30 12:55] LABS: Troponin I Only 0.432 NG/ML (0.00-0.045)
[2017-10-30 13:08] LABS: Amorphous Crystals,Urine Occasional /HPF (Few); Apearance,Urine CLOUDY (Clear); Bacteria,Urine Many /HPF (Few); Bilirubin,Urine Negative (Negative); Blood, Urine Moderate mg/dL (Negative); Glucose,Urine (UA) Negative (Negative); Ketones,Urine Negative (Negative); Mucus,Urine Occasional /LPF (Occasional); Nitrite,Urine Negative (Negative); Protein,Urine 30 MG/DL; RBC,Urine 13 /HPF (0-4); Urine Color Yellow (Yellow); Urine Specific Gravity 1.006 (1.001-1.035); Urine Urobilinogen < 2.0 EU/DL (0.2-1.0); WBC,Urine 5 /HPF (0-6)
[2017-10-30] MEDS ORDERED: SODIUM CHLORIDE 0.9% 1,000 ML IV ONE ×2 (13:48→16:28)
[2017-10-30] MEDS ORDERED: DEXTROSE 50% 25 GM/50 ML VIAL IV PRN (15:40)
[2017-10-30] MEDS ORDERED: GLUCAGON 1 MG VIAL IM PRN (15:40)
[2017-10-30] MEDS: SODIUM CHLORIDE 0.9% 1,000 ML IV SCH ×2 (15:49→18:48)
[2017-10-30] MEDS: PIPERACILLIN/TAZOBACTAM 3,375 MG in SODIUM CHLORIDE 0.9% 100 ML IV SCH (15:53)
[2017-10-30] MEDS: HYDROCORTISONE 100 MG VIAL IV SCH ×2 (16:23→23:00)
[2017-10-30 16:44] LABS: Band Neutrophils 10 % (0-10); Metamyelocytes 3 %; Promyelocytes 1 %; Segmented Neutrophils 71 % (50-85); Total Cells Counted 100
[2017-10-30 16:45] LABS: Platelet Estimate Adequate; Polychromasia Slight
[2017-10-30 16:46] LABS: Burr Cells Slight
[2017-10-30] MEDS: NOREPINEPHRINE 8 MG in SODIUM CHLORIDE 0.9% 242 ML IV SCH ×2 (17:03→21:45)
[2017-10-30] MEDS: INSULIN REGULAR 100 UNIT/ML SUBCUT SCH (18:28)
[2017-10-30] MEDS: VANCOMYCIN INJ 750 MG in SODIUM CHLORIDE 0.45% 250 ML IV SCH (20:00)
[2017-10-30] MEDS: VASOPRESSIN 100 UNITS in SODIUM CHLORIDE 0.9% 95 ML IV SCH (22:30)
[2017-10-31] MEDS ORDERED: INFLUENZA VIRUS VACCINE 0.5 ML SYRINGE IM ONE (00:12)
[2017-10-31] MEDS: SODIUM CHLORIDE 0.9% 1,000 ML IV SCH ×5 (00:31→22:00)
[2017-10-31] MEDS: LACTOBACILLUS RHAMNOSUS GG CAPSULE PO SCH ×3 (00:34→20:35)
[2017-10-31] MEDS: ENOXAPARIN 40 MG/0.4 ML SYRINGE SUBCUT SCH ×2 (00:34→20:29)
[2017-10-31] MEDS: PIPERACILLIN/TAZOBACTAM 3,375 MG in SODIUM CHLORIDE 0.9% 100 ML IV SCH ×3 (00:35→18:02)
[2017-10-31] MEDS: POTASSIUM CHLORIDE 20 MEQ/15 ML UDCUP PO SCH ×3 (00:37→20:35)
[2017-10-31] MEDS: INSULIN REGULAR 100 UNIT/ML SUBCUT SCH ×4 (00:44→18:03)
[2017-10-31] MEDS: NOREPINEPHRINE 8 MG in SODIUM CHLORIDE 0.9% 242 ML IV SCH ×2 (01:59→17:33)
[2017-10-31 05:41] LABS: Basophils # 0.1 10*3/uL (0.0-0.2); Basophils % 0.2 % (0.0-0.8); Hematocrit 29.9 VOL% (42.0-52.0); Hemoglobin 9.2 GM/DL (14.0-18.0); Immature Granulocytes % 4.6 %; Immature Granulocytes Absolute 1.99 #; Lymphocytes # 0.7 10*3/uL (1.4-4.0); Lymphocytes % 1.7 % (21.2-54.2); Mean Corpuscular HGB Conc 30.8 GM/DL (32-36); Mean Corpuscular Hemoglobin 28 PG (27-34); Mean Corpuscular Volume 90.6 FL (87-102); Mean Platelet Volume 9.3 FL (9.6-12.0); Monocytes # 5.5 10*3/uL (0.11-0.8); Monocytes % 12.5 % (1.7-12.7); Neutrophils # 35.4 10*3/uL (1.4-7.4); Platelet Count 213 T/CUMM (130-400); Red Cell Distribution Width 27.6 % (9.3-17.3)
[2017-10-31 05:45] LABS: White Blood Count 43.7 T/CUMM (4-12)
[2017-10-31 06:25] LABS: Calcium 7.7 MG/DL (8.5-10.1)
[2017-10-31 06:31] LABS: Band Neutrophils 6 % (0-10); Lymphocytes 3 % (20-55); Metamyelocytes 3 %; Myelocytes 5 %; Segmented Neutrophils 74 % (50-85)
[2017-10-31 06:32] LABS: Burr Cells 2+; Hypochromasia 1+; Platelet Estimate Normal
[2017-10-31 06:34] LABS: Polychromasia Few; Total Cells Counted 100
[2017-10-31] MEDS: HYDROCORTISONE 100 MG VIAL IV SCH ×2 (09:27→18:03)
[2017-10-31] MEDS: PYRIDOXINE 50 MG TABLET PO SCH (09:28)
[2017-10-31] MEDS: ISONIAZID 300 MG TABLET PO SCH (09:28)
[2017-10-31] MEDS: NOREPINEPHRINE 16 MG in SODIUM CHLORIDE 0.9% 234 ML IV SCH (10:16)
[2017-10-31 13:56] LABS: Lactic Acid 3.5 MMOL/L (0.4-2.0)
[2017-10-31] MEDS: metroNIDAZOLE INJ 500 MG in PREMIX 1 EACH IV SCH ×2 (14:04→20:29)
[2017-10-31] MEDS: OXYBUTYNIN XL 15 MG TABLET PO SCH (18:01)
[2017-10-31] MEDS: VANCOMYCIN 50 MG/ML 60 ML/BOTTLE PO SCH (18:03)
[2017-10-31 18:30] LABS: Lactic Acid 2.6 MMOL/L (0.4-2.0)
[2017-10-31] MEDS: PHENYLEPHRINE DRIP 40 MG/250 ML PREMIX IV SCH (18:45)
[2017-10-31] MEDS: VANCOMYCIN INJ 750 MG in SODIUM CHLORIDE 0.45% 250 ML IV SCH (20:30)
[2017-10-31] MEDS: VASOPRESSIN 100 UNITS in SODIUM CHLORIDE 0.9% 95 ML IV SCH (20:35)
[2017-11-01] MEDS: VANCOMYCIN 50 MG/ML 60 ML/BOTTLE PO SCH ×4 (01:00→18:21)
[2017-11-01] MEDS: PIPERACILLIN/TAZOBACTAM 3,375 MG in SODIUM CHLORIDE 0.9% 100 ML IV SCH ×3 (01:00→16:30)
[2017-11-01] MEDS: INSULIN REGULAR 100 UNIT/ML SUBCUT SCH ×4 (01:33→18:21)
[2017-11-01] MEDS: PHENYLEPHRINE DRIP 40 MG/250 ML PREMIX IV SCH (01:48)
[2017-11-01] MEDS: HYDROCORTISONE 100 MG VIAL IV SCH (04:14)
[2017-11-01] MEDS: metroNIDAZOLE INJ 500 MG in PREMIX 1 EACH IV SCH ×3 (04:14→20:00)
[2017-11-01] MEDS: SODIUM CHLORIDE 0.9% 1,000 ML IV SCH ×2 (04:24→05:15)
[2017-11-01 06:07] LABS: Basophils # 0.1 10*3/uL (0.0-0.2); Basophils % 0.2 % (0.0-0.8); Hematocrit 30.5 VOL% (42.0-52.0); Hemoglobin 9.8 GM/DL (14.0-18.0); Immature Granulocytes % 7.4 %; Immature Granulocytes Absolute 2.41 #; Lymphocytes # 0.4 10*3/uL (1.4-4.0); Lymphocytes % 1.2 % (21.2-54.2); Mean Corpuscular HGB Conc 32.1 GM/DL (32-36); Mean Corpuscular Hemoglobin 27 PG (27-34); Mean Corpuscular Volume 85.2 FL (87-102); Mean Platelet Volume 10.6 FL (9.6-12.0); Monocytes # 2.5 10*3/uL (0.11-0.8); Monocytes % 7.7 % (1.7-12.7); NRBC # 0.07 10*3/uL; Neutrophils # 27.1 10*3/uL (1.4-7.4); Neutrophils % 83.5 % (38.7-73.9); Platelet Count 236 T/CUMM (130-400); Red Blood Count 3.58 MC/CUMM (3.8-5.5); Red Cell Distribution Width 26.9 % (9.3-17.3); White Blood Count 32.5 T/CUMM (4-12)
[2017-11-01 06:39] LABS: Calcium 7.5 MG/DL (8.5-10.1); Osmolality,Calculated 299.9 MOS/KG (273-304); Potassium 3.1 MMOL/L (3.5-5.1)
[2017-11-01 07:08] LABS: Anisocytosis 2+; Band Neutrophils 25 % (0-10); Lymphocytes 1 % (20-55); Poikilocytosis 2+; Segmented Neutrophils 67 % (50-85); Total Cells Counted 100
[2017-11-01 07:09] LABS: Acanthocytes 1+; Target Cells Slight
[2017-11-01] MEDS: DEXT 5% NACL 0.2% KCL 20 MEQ 20 MEQ/1,000 ML BAG IV SCH ×2 (08:31→16:32)
[2017-11-01] MEDS: THIAMINE 200 MG/2 ML VIAL IV SCH (08:33)
[2017-11-01] MEDS: LACTOBACILLUS RHAMNOSUS GG CAPSULE PO SCH ×2 (08:34→21:09)
[2017-11-01] MEDS: POTASSIUM CHLORIDE 20 MEQ/15 ML UDCUP PO SCH ×2 (08:34→21:10)
[2017-11-01] MEDS: ISONIAZID 300 MG TABLET PO SCH (08:34)
[2017-11-01] MEDS: PYRIDOXINE 50 MG TABLET PO SCH (08:34)
[2017-11-01] MEDS: OXYBUTYNIN XL 15 MG TABLET PO SCH (08:34)
[2017-11-01] MEDS: predniSONE 20 MG TABLET PO SCH (08:34)
[2017-11-01] MEDS: NOREPINEPHRINE 16 MG in SODIUM CHLORIDE 0.9% 234 ML IV SCH (10:42)
[2017-11-01] MEDS: VANCOMYCIN INJ 750 MG in SODIUM CHLORIDE 0.45% 250 ML IV SCH ×2 (11:42→21:11)
[2017-11-01] MEDS: CHOLESTYRAMINE/ASPARTAME 4 GM PACK PO SCH ×2 (11:43→21:10)
[2017-11-01] MEDS: NOREPINEPHRINE 8 MG in SODIUM CHLORIDE 0.9% 242 ML IV SCH (16:52)
[2017-11-01] MEDS: ENOXAPARIN 40 MG/0.4 ML SYRINGE SUBCUT SCH (21:10)
[2017-11-01] MEDS: VASOPRESSIN 100 UNITS in SODIUM CHLORIDE 0.9% 95 ML IV SCH (21:14)
[2017-11-02] MEDS: VANCOMYCIN 50 MG/ML 60 ML/BOTTLE PO SCH ×5 (01:05→20:45)
[2017-11-02] MEDS: INSULIN REGULAR 100 UNIT/ML SUBCUT SCH ×4 (01:12→18:58)
[2017-11-02] MEDS: DEXT 5% NACL 0.2% KCL 20 MEQ 20 MEQ/1,000 ML BAG IV SCH ×2 (01:12→10:49)
[2017-11-02] MEDS: PHENYLEPHRINE DRIP 40 MG/250 ML PREMIX IV SCH (01:13)
[2017-11-02] MEDS: PIPERACILLIN/TAZOBACTAM 3,375 MG in SODIUM CHLORIDE 0.9% 100 ML IV SCH ×2 (01:13→08:45)
[2017-11-02] MEDS: metroNIDAZOLE INJ 500 MG in PREMIX 1 EACH IV SCH ×3 (04:00→20:44)
[2017-11-02 05:19] LABS: Basophils # 0.1 10*3/uL (0.0-0.2); Basophils % 0.3 % (0.0-0.8); Hematocrit 38.5 VOL% (42.0-52.0); Hemoglobin 12.4 GM/DL (14.0-18.0); Immature Granulocytes Absolute 0.32 #; Lymphocytes # 0.7 10*3/uL (1.4-4.0); Lymphocytes % 2.2 % (21.2-54.2); Mean Corpuscular HGB Conc 32.2 GM/DL (32-36); Mean Corpuscular Hemoglobin 27 PG (27-34); Monocytes # 1.9 10*3/uL (0.11-0.8); Monocytes % 6.3 % (1.7-12.7); NRBC # 0.23 10*3/uL; Neutrophils # 27.6 10*3/uL (1.4-7.4); Neutrophils % 90.2 % (38.7-73.9); Platelet Count 207 T/CUMM (130-400); Red Blood Count 4.53 MC/CUMM (3.8-5.5); Red Cell Distribution Width 26.8 % (9.3-17.3); White Blood Count 30.6 T/CUMM (4-12)
[2017-11-02 05:40] LABS: Calcium 7.9 MG/DL (8.5-10.1); Osmolality,Calculated 301.1 MOS/KG (273-304); Potassium 3.7 MMOL/L (3.5-5.1)
[2017-11-02 06:02] LABS: Band Neutrophils 2 % (0-10); Lymphocytes 3 % (20-55); Nucleated Red Blood Cells 1 (0-5); Segmented Neutrophils 89 % (50-85); Total Cells Counted 100
[2017-11-02 06:03] LABS: Burr Cells 1+; Hypochromasia 1+; Platelet Estimate Normal; Target Cells Few
[2017-11-02 06:04] LABS: Schistocytes Few
[2017-11-02 06:05] LABS: Acanthocytes Few
[2017-11-02] MEDS: THIAMINE 200 MG/2 ML VIAL IV SCH (08:58)
[2017-11-02] MEDS: POTASSIUM CHLORIDE 20 MEQ/15 ML UDCUP PO SCH ×2 (08:58→20:44)
[2017-11-02] MEDS ORDERED: SODIUM BICARB INJ 150 MEQ in STERILE WATER INJ 850 ML IV SCH (09:00)
[2017-11-02] MEDS: LACTOBACILLUS RHAMNOSUS GG CAPSULE PO SCH ×2 (09:27→20:44)
[2017-11-02] MEDS: OXYBUTYNIN XL 15 MG TABLET PO SCH (09:27)
[2017-11-02] MEDS: ISONIAZID 300 MG TABLET PO SCH (09:27)
[2017-11-02] MEDS: PYRIDOXINE 50 MG TABLET PO SCH (09:28)
[2017-11-02] MEDS: predniSONE 20 MG TABLET PO SCH (09:28)
[2017-11-02] MEDS: NOREPINEPHRINE 16 MG in SODIUM CHLORIDE 0.9% 234 ML IV SCH (09:28)
[2017-11-02] MEDS: CHOLESTYRAMINE/ASPARTAME 4 GM PACK PO SCH ×2 (09:28→20:45)
[2017-11-02 09:42] LABS: ABG Base Excess -8.5 MMOL/L (-2.5-2.5); ABG HCO3 17.6 MMOL/L (20-26); ABG Oxygen Saturation 94.3 % (95-100); ABG PH 7.453 (7.35-7.45); ABG PO2 73.3 MM HG (80-95); ABG TCO2 12.1 MMOL/L (23-27)
[2017-11-02 09:44] LABS: ABG PCO2 19.5 MM HG (35-48)
[2017-11-02] MEDS: SODIUM BICARB IV SCH ×2 (10:48→21:13)
[2017-11-02] MEDS: [UNRECOGNIZED DRUG - OTHER] IV SCH ×2 (10:48→21:13)
[2017-11-02] MEDS: POTASSIUM CHLORIDE IV SCH ×2 (10:48→21:13)
[2017-11-02 11:43] LABS: Apearance,Urine HAZY (Clear); Bilirubin,Urine Negative (Negative); Blood, Urine Negative (Negative); Glucose,Urine (UA) Negative (Negative); Ketones,Urine Negative (Negative); Nitrite,Urine Negative (Negative); Protein,Urine Negative; Urine Color Amber (Yellow); Urine Specific Gravity 1.015 (1.001-1.035); Urine Urobilinogen 0.2 EU/DL (0.2-1.0)
[2017-11-02 11:54] LABS: Bacteria,Urine Trace /HPF (Few); Hyaline Casts,Urine 0-5 /LPF (0-3); Mucus,Urine 1+ /LPF (Occasional); WBC,Urine 20-30 /HPF (0-6)
[2017-11-02] MEDS: VANCOMYCIN INJ 750 MG in SODIUM CHLORIDE 0.45% 250 ML IV SCH (14:46)
[2017-11-02 16:05] LABS: Lactic Acid 2.2 MMOL/L (0.4-2.0)
[2017-11-02] MEDS: ENOXAPARIN 40 MG/0.4 ML SYRINGE SUBCUT SCH (20:43)
[2017-11-02] MEDS: ZINC OXIDE PASTE 113 GM TUBE TOP SCH (20:44)
[2017-11-03] MEDS: INSULIN REGULAR 100 UNIT/ML SUBCUT SCH ×4 (01:57→19:29)
[2017-11-03] MEDS: VANCOMYCIN 50 MG/ML 60 ML/BOTTLE PO SCH ×5 (02:54→22:46)
[2017-11-03] MEDS: metroNIDAZOLE INJ 500 MG in PREMIX 1 EACH IV SCH ×3 (05:05→20:44)
[2017-11-03 05:33] LABS: Basophils % 0.2 % (0.0-0.8); Eosinophils % 0.1 % (0.00-10.9); Hematocrit 32.6 VOL% (42.0-52.0); Hemoglobin 10.4 GM/DL (14.0-18.0); Immature Granulocytes % 1.3 %; Immature Granulocytes Absolute 0.18 #; Lymphocytes # 1.1 10*3/uL (1.4-4.0); Lymphocytes % 7.8 % (21.2-54.2); Mean Corpuscular HGB Conc 31.9 GM/DL (32-36); Mean Corpuscular Hemoglobin 27 PG (27-34); Mean Corpuscular Volume 85.8 FL (87-102); Mean Platelet Volume 10.8 FL (9.6-12.0); Monocytes # 1.5 10*3/uL (0.11-0.8); Monocytes % 10.7 % (1.7-12.7); NRBC # 0.07 10*3/uL; Neutrophils # 11.5 10*3/uL (1.4-7.4); Neutrophils % 79.9 % (38.7-73.9); Platelet Count 167 T/CUMM (130-400); Red Cell Distribution Width 27.1 % (9.3-17.3); White Blood Count 14.4 T/CUMM (4-12)
[2017-11-03 05:52] LABS: Band Neutrophils 2 % (0-10); Giant Platelets Few; Hypochromasia 1+; Lymphocytes 7 % (20-55); Platelet Estimate Normal; Segmented Neutrophils 81 % (50-85); Total Cells Counted 100
[2017-11-03 05:53] LABS: Burr Cells Slight; Ovalocytes Slight
[2017-11-03 06:21] LABS: Albumin 1.9 G/DL (3.4-5.0); Bilirubin,Total 0.5 MG/DL (0.2-1.0); Calcium 7.8 MG/DL (8.5-10.1); Osmolality,Calculated 303.7 MOS/KG (273-304); Potassium 3.8 MMOL/L (3.5-5.1); Total Protein 4.7 G/DL (6.4-8.3)
[2017-11-03] MEDS: POTASSIUM CHLORIDE 20 MEQ/15 ML UDCUP PO SCH ×2 (08:56→20:44)
[2017-11-03] MEDS: THIAMINE 200 MG/2 ML VIAL IV SCH (08:56)
[2017-11-03] MEDS: OXYBUTYNIN XL 15 MG TABLET PO SCH (08:57)
[2017-11-03] MEDS: CHOLESTYRAMINE/ASPARTAME 4 GM PACK PO SCH ×2 (08:57→20:45)
[2017-11-03] MEDS: ZINC OXIDE PASTE 113 GM TUBE TOP SCH ×2 (08:57→22:47)
[2017-11-03] MEDS: PYRIDOXINE 50 MG TABLET PO SCH (08:57)
[2017-11-03] MEDS: ISONIAZID 300 MG TABLET PO SCH (08:57)
[2017-11-03] MEDS: predniSONE 20 MG TABLET PO SCH (08:57)
[2017-11-03] MEDS: LACTOBACILLUS RHAMNOSUS GG CAPSULE PO SCH ×2 (09:00→20:45)
[2017-11-03] MEDS: SODIUM BICARB IV SCH ×3 (09:00→19:28)
[2017-11-03] MEDS: [UNRECOGNIZED DRUG - OTHER] IV SCH ×3 (09:00→19:28)
[2017-11-03] MEDS: POTASSIUM CHLORIDE IV SCH ×3 (09:00→19:28)
[2017-11-03] MEDS: ENOXAPARIN 40 MG/0.4 ML SYRINGE SUBCUT SCH (20:44)
[2017-11-04] MEDS: INSULIN REGULAR 100 UNIT/ML SUBCUT SCH ×4 (00:02→17:54)
[2017-11-04] MEDS: POTASSIUM CHLORIDE IV SCH ×2 (02:10→13:04)
[2017-11-04] MEDS: [UNRECOGNIZED DRUG - OTHER] IV SCH ×2 (02:10→13:04)
[2017-11-04] MEDS: SODIUM BICARB IV SCH ×2 (02:10→13:04)
[2017-11-04] MEDS: VANCOMYCIN 50 MG/ML 60 ML/BOTTLE PO SCH ×4 (03:35→21:03)
[2017-11-04] MEDS: metroNIDAZOLE INJ 500 MG in PREMIX 1 EACH IV SCH ×3 (05:07→21:01)
[2017-11-04 05:46] LABS: Basophils % 0.2 % (0.0-0.8); Eosinophils % 0.2 % (0.00-10.9); Hematocrit 32.4 VOL% (42.0-52.0); Hemoglobin 10.1 GM/DL (14.0-18.0); Immature Granulocytes % 1.9 %; Lymphocytes # 1.2 10*3/uL (1.4-4.0); Lymphocytes % 11.3 % (21.2-54.2); Mean Corpuscular HGB Conc 31.2 GM/DL (32-36); Mean Corpuscular Hemoglobin 27 PG (27-34); Mean Corpuscular Volume 87.1 FL (87-102); Monocytes % 18.8 % (1.7-12.7); NRBC # 0.04 10*3/uL; Neutrophils # 7.3 10*3/uL (1.4-7.4); Neutrophils % 67.6 % (38.7-73.9); Platelet Count 151 T/CUMM (130-400); Red Blood Count 3.72 MC/CUMM (3.8-5.5); Red Cell Distribution Width 26.7 % (9.3-17.3); White Blood Count 10.8 T/CUMM (4-12)
[2017-11-04 06:09] LABS: Hypochromasia 1+; Lymphocytes 17 % (20-55); Segmented Neutrophils 70 % (50-85); Total Cells Counted 100
[2017-11-04 06:10] LABS: Microcytosis 1+; Ovalocytes Slight; Platelet Estimate Adequate; Target Cells Slight
[2017-11-04 06:20] LABS: Bilirubin,Total 0.9 MG/DL (0.2-1.0); Calcium 8.2 MG/DL (8.5-10.1); Osmolality,Calculated 307.4 MOS/KG (273-304); Potassium 3.9 MMOL/L (3.5-5.1); Total Protein 4.6 G/DL (6.4-8.3)
[2017-11-04] MEDS: THIAMINE 200 MG/2 ML VIAL IV SCH (09:35)
[2017-11-04] MEDS: LACTOBACILLUS RHAMNOSUS GG CAPSULE PO SCH ×2 (09:35→21:03)
[2017-11-04] MEDS: POTASSIUM CHLORIDE 20 MEQ/15 ML UDCUP PO SCH ×2 (09:35→21:03)
[2017-11-04] MEDS: OXYBUTYNIN XL 15 MG TABLET PO SCH (09:35)
[2017-11-04] MEDS: predniSONE 20 MG TABLET PO SCH (09:35)
[2017-11-04] MEDS: CHOLESTYRAMINE/ASPARTAME 4 GM PACK PO SCH ×2 (09:36→21:03)
[2017-11-04] MEDS: ZINC OXIDE PASTE 113 GM TUBE TOP SCH ×2 (09:36→21:04)
[2017-11-04] MEDS: ISONIAZID 300 MG TABLET PO SCH (17:01)
[2017-11-04] MEDS: PYRIDOXINE 50 MG TABLET PO SCH (17:01)
[2017-11-04] MEDS: ENOXAPARIN 40 MG/0.4 ML SYRINGE SUBCUT SCH (21:03)
[2017-11-05] MEDS: INSULIN REGULAR 100 UNIT/ML SUBCUT SCH ×4 (00:17→17:59)
[2017-11-05] MEDS: [UNRECOGNIZED DRUG - OTHER] IV SCH ×4 (00:35→20:07)
[2017-11-05] MEDS: SODIUM BICARB IV SCH ×4 (00:35→20:07)
[2017-11-05] MEDS: POTASSIUM CHLORIDE IV SCH ×4 (00:35→20:07)
[2017-11-05] MEDS: VANCOMYCIN 50 MG/ML 60 ML/BOTTLE PO SCH ×4 (03:14→21:55)
[2017-11-05] MEDS: metroNIDAZOLE INJ 500 MG in PREMIX 1 EACH IV SCH ×2 (03:14→16:54)
[2017-11-05 06:07] LABS: Basophils % 0.1 % (0.0-0.8); Eosinophils % 0.2 % (0.00-10.9); Hematocrit 31.8 VOL% (42.0-52.0); Hemoglobin 9.9 GM/DL (14.0-18.0); Immature Granulocytes % 2.2 %; Lymphocytes # 1.3 10*3/uL (1.4-4.0); Lymphocytes % 9.2 % (21.2-54.2); Mean Corpuscular HGB Conc 31.1 GM/DL (32-36); Mean Corpuscular Hemoglobin 27 PG (27-34); Mean Corpuscular Volume 87.8 FL (87-102); Mean Platelet Volume 11.1 FL (9.6-12.0); Monocytes % 21.7 % (1.7-12.7); NRBC # 0.08 10*3/uL; Neutrophils # 9.2 10*3/uL (1.4-7.4); Neutrophils % 66.6 % (38.7-73.9); Platelet Count 138 T/CUMM (130-400); Red Blood Count 3.62 MC/CUMM (3.8-5.5); White Blood Count 13.8 T/CUMM (4-12)
[2017-11-05 06:31] LABS: Giant Platelets Few; Hypochromasia 1+; Lymphocytes 8 % (20-55); Platelet Estimate Normal; Segmented Neutrophils 79 % (50-85); Total Cells Counted 100
[2017-11-05 06:43] LABS: Albumin 1.9 G/DL (3.4-5.0); Bilirubin,Total 0.5 MG/DL (0.2-1.0); Osmolality,Calculated 304.6 MOS/KG (273-304); Potassium 3.7 MMOL/L (3.5-5.1); Total Protein 4.6 G/DL (6.4-8.3)
[2017-11-05] MEDS: OXYBUTYNIN XL 15 MG TABLET PO SCH (09:31)
[2017-11-05] MEDS: THIAMINE 200 MG/2 ML VIAL IV SCH (09:31)
[2017-11-05] MEDS: CHOLESTYRAMINE/ASPARTAME 4 GM PACK PO SCH ×2 (09:31→21:56)
[2017-11-05] MEDS: POTASSIUM CHLORIDE 20 MEQ/15 ML UDCUP PO SCH ×2 (09:31→21:55)
[2017-11-05] MEDS: LACTOBACILLUS RHAMNOSUS GG CAPSULE PO SCH ×2 (09:31→21:55)
[2017-11-05] MEDS: predniSONE 20 MG TABLET PO SCH (09:31)
[2017-11-05] MEDS: ZINC OXIDE PASTE 113 GM TUBE TOP SCH ×2 (09:32→21:56)
[2017-11-05] MEDS: PYRIDOXINE 50 MG TABLET PO SCH (09:32)
[2017-11-05] MEDS: ISONIAZID 300 MG TABLET PO SCH (09:32)
[2017-11-05] MEDS: ENOXAPARIN 40 MG/0.4 ML SYRINGE SUBCUT SCH (21:56)
[2017-11-06] MEDS: INSULIN REGULAR 100 UNIT/ML SUBCUT SCH ×3 (01:19→12:17)
[2017-11-06] MEDS: VANCOMYCIN 50 MG/ML 60 ML/BOTTLE PO SCH ×2 (01:41→09:09)
[2017-11-06] MEDS: [UNRECOGNIZED DRUG - OTHER] IV SCH (05:04)
[2017-11-06] MEDS: SODIUM BICARB IV SCH (05:04)
[2017-11-06] MEDS: POTASSIUM CHLORIDE IV SCH (05:04)
[2017-11-06] MEDS: POTASSIUM CHLORIDE 20 MEQ/15 ML UDCUP PO SCH (09:07)
[2017-11-06] MEDS: LACTOBACILLUS RHAMNOSUS GG CAPSULE PO SCH (09:08)
[2017-11-06] MEDS: PYRIDOXINE 50 MG TABLET PO SCH (09:08)
[2017-11-06] MEDS: ISONIAZID 300 MG TABLET PO SCH (09:08)
[2017-11-06] MEDS: OXYBUTYNIN XL 15 MG TABLET PO SCH (09:08)
[2017-11-06] MEDS: CHOLESTYRAMINE/ASPARTAME 4 GM PACK PO SCH (09:08)
[2017-11-06] MEDS: predniSONE 20 MG TABLET PO SCH (09:08)
[2017-11-06] MEDS: THIAMINE 200 MG/2 ML VIAL IV SCH (09:09)
[2017-11-06] MEDS: ZINC OXIDE PASTE 113 GM TUBE TOP SCH (09:09)
[2017-11-06 11:31] VITALS: BP 110/60
== END 2017-11-06 14:30 | DRG 871 ==
LOC: EDBD → EDUNIT# → N.ED 10:56 → N.EDINP 13:17 → SUATTDRO 13:17 → N.CC 15:05 → N.5E 11-03 18:31
PROVIDERS: ADMIT Hospitalist; ATTEND Family Medicine

== ENCOUNTER 2019-09-23 12:41 | Observation (INO) ==
[2019-09-23] MEDS ORDERED: LACTATED RINGERS 1,000 ML IV ONE (13:20)
[2019-09-23 13:44] LABS: Basophils % 0.6 % (0.0-0.8); Eosinophils # 0.1 10*3/uL (0.0-0.87); Eosinophils % 0.9 % (0.00-10.9); Hemoglobin 15.1 GM/DL (14.0-18.0); Immature Granulocytes % 0.6 %; Immature Granulocytes Absolute 0.03 #; Lymphocytes # 1.1 10*3/uL (1.4-4.0); Lymphocytes % 21.2 % (21.2-54.2); Mean Corpuscular HGB Conc 32.1 GM/DL (32-36); Mean Corpuscular Volume 89.7 FL (87-102); Mean Platelet Volume 10.9 FL (9.6-12.0); Neutrophils % 60.7 % (38.7-73.9); Platelet Count 192 T/CUMM (130-400); Red Blood Count 5.24 MC/CUMM (3.8-5.5); Red Cell Distribution Width 15.2 % (9.3-17.3); White Blood Count 5.4 T/CUMM (4-12)
[2019-09-23 13:59] LABS: Apearance,Urine CLOUDY (Clear); Bilirubin,Urine Negative (Negative); Blood, Urine Moderate mg/dL (Negative); Glucose,Urine (UA) Negative (Negative); Ketones,Urine Negative (Negative); Mucus,Urine Few /LPF (Occasional); Nitrite,Urine Negative (Negative); Protein,Urine >=500 MG/DL; RBC,Urine 146 /HPF (0-4); Squamous Epithelial Cell,Urine Occasional /HPF (0-10); Urine Color Yellow (Yellow); Urine Specific Gravity 1.016 (1.001-1.035); Urine Urobilinogen < 2.0 EU/DL (0.2-1.0); WBC,Urine 30 /HPF (0-6)
[2019-09-23 14:08] LABS: Albumin 3.8 G/DL (3.4-5.0); Bilirubin,Total 0.6 MG/DL (0.2-1.0); Calcium 9.7 MG/DL (8.5-10.1); Total Protein 8.1 G/DL (6.4-8.3)
[2019-09-23 14:40] LABS: Lymphocytes 29 % (20-55); Segmented Neutrophils 62 % (50-85); Total Cells Counted 100
[2019-09-23] MEDS ORDERED: DOCUSATE SODIUM 100 MG CAPSULE PO PRN (16:07)
[2019-09-23 16:52] LABS: Thyroid Stimulating Hormone 1.99 uIU/ml (0.358-3.74)
[2019-09-23] MEDS: SODIUM CHLORIDE 0.9% 1,000 ML IV SCH (17:06)
[2019-09-23] MEDS: ERTAPENEM 1,000 MG in SODIUM CHLORIDE 0.9% 100 ML IV SCH (18:50)
[2019-09-23] MEDS: MEMANTINE 10 MG TABLET PO SCH (20:40)
[2019-09-23] MEDS: busPIRone 10 MG TABLET PO SCH (20:40)
[2019-09-23] MEDS: DONEPEZIL 10 MG TABLET PO SCH (20:40)
[2019-09-23] MEDS: ENOXAPARIN 40 MG/0.4 ML SYRINGE SUBCUT SCH (20:40)
[2019-09-24] MEDS: SODIUM CHLORIDE 0.9% 1,000 ML IV SCH ×3 (03:20→23:44)
[2019-09-24 04:47] LABS: Basophils % 0.4 % (0.0-0.8); Eosinophils # 0.1 10*3/uL (0.0-0.87); Eosinophils % 1.1 % (0.00-10.9); Hematocrit 43.7 VOL% (42.0-52.0); Hemoglobin 13.9 GM/DL (14.0-18.0); Immature Granulocytes % 0.4 %; Immature Granulocytes Absolute 0.02 #; Lymphocytes # 1.2 10*3/uL (1.4-4.0); Lymphocytes % 21.8 % (21.2-54.2); Mean Corpuscular HGB Conc 31.8 GM/DL (32-36); Mean Corpuscular Volume 90.1 FL (87-102); Mean Platelet Volume 10.9 FL (9.6-12.0); Monocytes % 19.7 % (1.7-12.7); Neutrophils % 56.6 % (38.7-73.9); Platelet Count 178 T/CUMM (130-400); Red Blood Count 4.85 MC/CUMM (3.8-5.5); Red Cell Distribution Width 15.1 % (9.3-17.3); White Blood Count 5.6 T/CUMM (4-12)
[2019-09-24 05:15] LABS: Osmolality,Calculated 288.8 MOS/KG (273-304)
[2019-09-24 06:07] LABS: Eosinophils 1 % (0-10); Lymphocytes 32 % (20-55); Segmented Neutrophils 58 % (50-85); Total Cells Counted 100
[2019-09-24 06:08] LABS: Anisocytosis 1+; Platelet Estimate Normal
[2019-09-24] MEDS: busPIRone 10 MG TABLET PO SCH ×3 (08:15→20:57)
[2019-09-24] MEDS: DONEPEZIL 10 MG TABLET PO SCH ×2 (08:15→20:57)
[2019-09-24] MEDS: MEMANTINE 10 MG TABLET PO SCH ×2 (08:15→20:57)
[2019-09-24] MEDS: PANTOPRAZOLE 40 MG TABLET PO SCH (08:15)
[2019-09-24] MEDS: FERROUS SULFATE 325 MG TABLET PO SCH (08:15)
[2019-09-24] MEDS: ERTAPENEM 1,000 MG in SODIUM CHLORIDE 0.9% 100 ML IV SCH (16:36)
[2019-09-24] MEDS: ENOXAPARIN 40 MG/0.4 ML SYRINGE SUBCUT SCH (20:57)
[2019-09-25] MEDS: busPIRone 10 MG TABLET PO SCH ×3 (08:35→20:53)
[2019-09-25] MEDS: DONEPEZIL 10 MG TABLET PO SCH ×2 (08:35→20:53)
[2019-09-25] MEDS: MEMANTINE 10 MG TABLET PO SCH ×2 (08:35→20:53)
[2019-09-25] MEDS: FERROUS SULFATE 325 MG TABLET PO SCH (08:35)
[2019-09-25] MEDS: PANTOPRAZOLE 40 MG TABLET PO SCH (08:35)
[2019-09-25 13:15] LABS: Basophils % 0.4 % (0.0-0.8); Eosinophils # 0.1 10*3/uL (0.0-0.87); Eosinophils % 1.5 % (0.00-10.9); Hematocrit 41.4 VOL% (42.0-52.0); Hemoglobin 13.1 GM/DL (14.0-18.0); Immature Granulocytes % 0.4 %; Immature Granulocytes Absolute 0.02 #; Lymphocytes # 1.2 10*3/uL (1.4-4.0); Lymphocytes % 26.4 % (21.2-54.2); Mean Corpuscular HGB Conc 31.6 GM/DL (32-36); Mean Corpuscular Volume 91.4 FL (87-102); Monocytes % 18.5 % (1.7-12.7); Neutrophils % 52.8 % (38.7-73.9); Platelet Count 126 T/CUMM (130-400); Red Blood Count 4.53 MC/CUMM (3.8-5.5); Red Cell Distribution Width 14.9 % (9.3-17.3); White Blood Count 4.6 T/CUMM (4-12)
[2019-09-25 13:36] LABS: Calcium 8.3 MG/DL (8.5-10.1); Osmolality,Calculated 289.6 MOS/KG (273-304)
[2019-09-25 14:15] LABS: Eosinophils 1 % (0-10); Lymphocytes 23 % (20-55); Segmented Neutrophils 54 % (50-85); Total Cells Counted 100
[2019-09-25 14:16] LABS: Hypochromasia 1+; Platelet Estimate Decreased
[2019-09-25 14:17] LABS: Anisocytosis 2+; Poikilocytosis Slight
[2019-09-25] MEDS: ERTAPENEM 1,000 MG in SODIUM CHLORIDE 0.9% 100 ML IV SCH (16:30)
[2019-09-25] MEDS: ENOXAPARIN 40 MG/0.4 ML SYRINGE SUBCUT SCH (20:52)
[2019-09-25] MEDS: SODIUM CHLORIDE 0.9% 1,000 ML IV SCH (20:55)
[2019-09-26] MEDS ORDERED: LEVOFLOXACIN 750 MG TABLET PO SCH (08:00)
[2019-09-26] MEDS: PANTOPRAZOLE 40 MG TABLET PO SCH (08:05)
[2019-09-26] MEDS: busPIRone 10 MG TABLET PO SCH (08:05)
[2019-09-26] MEDS: FERROUS SULFATE 325 MG TABLET PO SCH (08:05)
[2019-09-26] MEDS: DONEPEZIL 10 MG TABLET PO SCH (08:05)
[2019-09-26] MEDS: MEMANTINE 10 MG TABLET PO SCH (08:05)
[2019-09-26] MEDS: SODIUM CHLORIDE 0.9% 1,000 ML IV SCH (10:06)
[2019-09-26 11:52] VITALS: BP 143/49
== END 2019-09-26 13:40 ==
LOC: EDUNIT# → EDBD → N.EDINP 12:41 → N.ED 12:41 → N.5E 16:19
PROVIDERS: ADMIT Hospitalist; ATTEND Hospitalist

== ENCOUNTER 2019-10-30 20:58 | Inpatient (IN) ==
[2019-10-30] MEDS ORDERED: SODIUM CHLORIDE 0.9% 1,000 ML IV STA (21:39)
[2019-10-30 21:46] LABS: Basophils % 0.4 % (0.0-0.8); Eosinophils % 0.5 % (0.00-10.9); Hematocrit 39.3 VOL% (42.0-52.0); Hemoglobin 12.7 GM/DL (14.0-18.0); Immature Granulocytes % 0.4 %; Immature Granulocytes Absolute 0.02 #; Lymphocytes # 1.4 10*3/uL (1.4-4.0); Lymphocytes % 25.3 % (21.2-54.2); Mean Corpuscular HGB Conc 32.3 GM/DL (32-36); Mean Corpuscular Volume 88.9 FL (87-102); Mean Platelet Volume 10.4 FL (9.6-12.0); Monocytes % 16.1 % (1.7-12.7); Neutrophils % 57.3 % (38.7-73.9); Platelet Count 196 T/CUMM (130-400); Red Blood Count 4.42 MC/CUMM (3.8-5.5); Red Cell Distribution Width 15.9 % (9.3-17.3); White Blood Count 5.6 T/CUMM (4-12)
[2019-10-30 21:58] LABS: Bacteria,Urine Occasional /HPF (Few); Bilirubin,Urine Negative (Negative); Blood, Urine Trace mg/dL (Negative); Glucose,Urine (UA) Negative (Negative); Ketones,Urine Negative (Negative); Mucus,Urine Occasional /LPF (Occasional); Nitrite,Urine Positive (Negative); Protein,Urine 30 MG/DL; RBC,Urine 4 /HPF (0-4); Squamous Epithelial Cell,Urine Occasional /HPF (0-10); Urine Color Yellow (Yellow); Urine Specific Gravity 1.005 (1.001-1.035); WBC,Urine 41 /HPF (0-6)
[2019-10-30 21:59] LABS: Apearance,Urine HAZY (Clear); Urine Urobilinogen 0.2 EU/DL (0.2-1.0)
[2019-10-30 22:01] LABS: Albumin 3.3 G/DL (3.4-5.0); Bilirubin,Total 0.4 MG/DL (0.2-1.0); Calcium 8.8 MG/DL (8.5-10.1); Osmolality,Calculated 278.4 MOS/KG (273-304); Total Protein 6.9 G/DL (6.4-8.3)
[2019-10-30] MEDS ORDERED: LEVOFLOXACIN INJ 500 MG in PREMIX 1 EACH IV STA (22:17)
[2019-10-30] MEDS ORDERED: ONDANSETRON 4 MG/2 ML VIAL IV PRN (23:51)
[2019-10-30 23:56] LABS: Band Neutrophils 1 % (0-10); Eosinophils 1 % (0-10); Lymphocytes 37 % (20-55); Platelet Estimate Normal; Segmented Neutrophils 56 % (50-85); Total Cells Counted 100
[2019-10-30 23:57] LABS: Anisocytosis Slight; Microcytosis Slight; Polychromasia Slight; Schistocytes Slight
[2019-10-31] MEDS: SODIUM CHLORIDE 0.9% 1,000 ML IV SCH ×3 (02:22→15:38)
[2019-10-31 07:23] LABS: Basophils % 0.4 % (0.0-0.8); Eosinophils % 0.3 % (0.00-10.9); Hematocrit 40.5 VOL% (42.0-52.0); Hemoglobin 13.1 GM/DL (14.0-18.0); Immature Granulocytes % 0.6 %; Immature Granulocytes Absolute 0.04 #; Lymphocytes # 1.6 10*3/uL (1.4-4.0); Lymphocytes % 22.4 % (21.2-54.2); Mean Corpuscular HGB Conc 32.3 GM/DL (32-36); Mean Corpuscular Volume 88.2 FL (87-102); Mean Platelet Volume 10.1 FL (9.6-12.0); Monocytes % 17.2 % (1.7-12.7); Neutrophils % 59.1 % (38.7-73.9); Platelet Count 200 T/CUMM (130-400); Red Blood Count 4.59 MC/CUMM (3.8-5.5); Red Cell Distribution Width 16.1 % (9.3-17.3)
[2019-10-31 07:41] LABS: Lymphocytes 26 % (20-55); Platelet Estimate Adequate; Segmented Neutrophils 59 % (50-85); Total Cells Counted 100
[2019-10-31 07:42] LABS: Hypochromasia 1+
[2019-10-31 07:46] LABS: Calcium 8.6 MG/DL (8.5-10.1); Osmolality,Calculated 284.8 MOS/KG (273-304)
[2019-10-31] MEDS: PANTOPRAZOLE 40 MG TABLET PO SCH (09:08)
[2019-10-31] MEDS: ENOXAPARIN 40 MG/0.4 ML SYRINGE SUBCUT SCH (09:08)
[2019-10-31] MEDS ORDERED: ACETAMINOPHEN 325 MG TABLET PO PRN (15:58)
[2019-10-31] MEDS ORDERED: TUBERCULIN PPD INTRADERM SCH (16:00)
[2019-10-31] MEDS: busPIRone 10 MG TABLET PO SCH (20:55)
[2019-10-31] MEDS: LEVOFLOXACIN INJ 500 MG in PREMIX 1 EACH IV SCH (21:00)
[2019-10-31] MEDS: ZINC OXIDE PASTE 113 GM TUBE TOP SCH (23:20)
[2019-11-01 05:45] LABS: Basophils % 0.3 % (0.0-0.8); Eosinophils % 0.5 % (0.00-10.9); Hematocrit 37.9 VOL% (42.0-52.0); Hemoglobin 12.3 GM/DL (14.0-18.0); Immature Granulocytes % 0.3 %; Immature Granulocytes Absolute 0.02 #; Lymphocytes # 1.6 10*3/uL (1.4-4.0); Lymphocytes % 26.4 % (21.2-54.2); Mean Corpuscular HGB Conc 32.5 GM/DL (32-36); Mean Corpuscular Volume 89.2 FL (87-102); Mean Platelet Volume 10.5 FL (9.6-12.0); Monocytes % 19.1 % (1.7-12.7); Neutrophils % 53.4 % (38.7-73.9); Platelet Count 203 T/CUMM (130-400); Red Blood Count 4.25 MC/CUMM (3.8-5.5); Red Cell Distribution Width 16.2 % (9.3-17.3); White Blood Count 5.9 T/CUMM (4-12)
[2019-11-01 06:04] LABS: Lymphocytes 36 % (20-55); Segmented Neutrophils 50 % (50-85); Total Cells Counted 100
[2019-11-01 06:05] LABS: Atypical Lymphocytes Few; Hypochromasia Slight; Platelet Estimate Adequate
[2019-11-01 06:15] LABS: Calcium 8.8 MG/DL (8.5-10.1); Osmolality,Calculated 280.1 MOS/KG (273-304)
[2019-11-01] MEDS ORDERED: ZIPRASIDONE 20 MG/1 ML VIAL IM ONE ×2 (07:40→22:18)
[2019-11-01] MEDS: SODIUM CHLORIDE 0.9% 1,000 ML IV SCH ×2 (10:12→19:01)
[2019-11-01] MEDS: busPIRone 10 MG TABLET PO SCH ×3 (10:12→21:34)
[2019-11-01] MEDS: POTASSIUM CHLORIDE 20 MEQ/15 ML UDCUP PO SCH (11:35)
[2019-11-01] MEDS: FERROUS SULFATE 325 MG TABLET PO SCH (11:35)
[2019-11-01] MEDS: PANTOPRAZOLE 40 MG TABLET PO SCH (11:35)
[2019-11-01] MEDS: ZINC OXIDE PASTE 113 GM TUBE TOP SCH ×2 (15:08→21:48)
[2019-11-01] MEDS: ENOXAPARIN 40 MG/0.4 ML SYRINGE SUBCUT SCH (15:09)
[2019-11-01] MEDS: LEVOFLOXACIN INJ 500 MG in PREMIX 1 EACH IV SCH (21:35)
[2019-11-02] MEDS: SODIUM CHLORIDE 0.9% 1,000 ML IV SCH (07:25)
[2019-11-02] MEDS: POTASSIUM CHLORIDE 20 MEQ/15 ML UDCUP PO SCH (10:07)
[2019-11-02] MEDS: busPIRone 10 MG TABLET PO SCH ×2 (10:08→15:13)
[2019-11-02] MEDS: ENOXAPARIN 40 MG/0.4 ML SYRINGE SUBCUT SCH (10:08)
[2019-11-02] MEDS: PANTOPRAZOLE 40 MG TABLET PO SCH (10:08)
[2019-11-02] MEDS: FERROUS SULFATE 325 MG TABLET PO SCH (10:08)
[2019-11-02] MEDS: ZINC OXIDE PASTE 113 GM TUBE TOP SCH (10:08)
[2019-11-02 11:46] VITALS: BP 119/64
[2019-11-02] MEDS ORDERED: MEROPENEM 500 MG in SODIUM CHLORIDE 0.9% 100 ML IV SCH (13:00)
[2019-11-02] MEDS ORDERED: ERTAPENEM 1,000 MG in SODIUM CHLORIDE 0.9% 100 ML IV STA (13:22)
[2019-11-02] MEDS ORDERED: ERTAPENEM 1,000 MG in SODIUM CHLORIDE 0.9% 100 ML IV SCH (17:30)
[2019-11-02] MEDS ORDERED: MEMANTINE 10 MG TABLET PO SCH (21:00)
[2019-11-02] MEDS ORDERED: DONEPEZIL 10 MG TABLET PO SCH (21:00)
== END 2019-11-02 16:17 | DRG 698 ==
LOC: EDUNIT# → N.ED 20:58 → N.EDINP 10-31 00:52 → N.2E 10-31 00:58
PROVIDERS: ADMIT Family Medicine; ATTEND Family Medicine